=== PATIENT | female | born 1965 | race Hispanic/Latino ===

== ENCOUNTER 2024-07-16 17:53 | Inpatient (IN) | payer OTHER ==
[~2024-07-16] VITALS: Ht 157.5 cm; Wt 73.5 kg
[2024-07-16 18:53] VITALS: PULSE 96; RESP 18; TEMP 97.9
[2024-07-16] MEDS ORDERED: SODIUM CHLORIDE 0.9% 500ML 500 ML IV ONE (19:45)
[2024-07-16] MEDS ORDERED: SODIUM CHLORIDE FLUSH 10 ML SYR INJ PRN (20:00)
[2024-07-16 21:30] VITALS: BP 147/75; PULSE 71; RESP 18; TEMP 97.7; O2SAT 100
[2024-07-16] MEDS ORDERED: LEVOTHYROXINE88 MCG PO (22:03)
[2024-07-16] MEDS ORDERED: ISOSORBIDE MONO60 MG PO (22:03)
[2024-07-16] MEDS ORDERED: NIFEDIPINE ER60 M1 PO (22:03)
[2024-07-16] MEDS ORDERED: JANTOVEN4 MG PO (22:03)
[2024-07-16] MEDS ORDERED: ATORVASTATIN CA40 MG PO (22:03)
[2024-07-16] MEDS ORDERED: LOSARTAN POTAS100 MG PO (22:03)
[2024-07-16] MEDS ORDERED: HYDRALAZINE HC100 MG PO (22:03)
[2024-07-16] MEDS ORDERED: TRAZODONE HCL50 MG PO (22:03)
[2024-07-16] MEDS ORDERED: SEVELAMER CARB800 MG PO (22:03)
[2024-07-16] MEDS ORDERED: JANTOVEN3 MG PO (22:03)
[2024-07-16] MEDS ORDERED: TORSEMIDE20 MG PO (22:03)
[2024-07-16] MEDS ORDERED: CLONIDINE HCL0.3 MG PO (22:03)
[2024-07-16 22:09] VITALS: BP 147/75; PULSE 71; RESP 18; TEMP 97.7; O2SAT 100
[2024-07-16 22:20] VITALS: PULSE 69; RESP 16; O2SAT 99
[2024-07-16 22:28] VITALS: BP 147/75; PULSE 71; RESP 18; TEMP 97.7; O2SAT 100
[2024-07-17] VITALS (8 sets, daily range): BP systolic 149–179; BP diastolic 66–89; PULSE 56–77; RESP 18–20; TEMP 97.6–98.7; O2SAT 96–100
[2024-07-17] MEDS ORDERED: ACETAMINOPHEN 325 MG TAB PO PRN (02:15)
[2024-07-17] MEDS ORDERED: POLYETHYLENE GLYCOL 3350 17 GM PACK PO PRN (02:15)
[2024-07-17] MEDS ORDERED: ALBUTEROL SULF 0.083% NEB SOLN 3 ML NEB NEB PRN (02:15)
[2024-07-17] MEDS ORDERED: GUAIFENESIN/DEXTROMETHORPHAN LIQD 5 ML UDC PO PRN (02:15)
[2024-07-17] MEDS ORDERED: MELATONIN 3 MG TAB PO PRN (02:15)
[2024-07-17 08:23] LABS: INR 3.17
[2024-07-17 08:25] LABS: ANION GAP 16.1 mmol/L (8-16); CALCIUM 8.9 mg/dL (8.4-10.2); CREATININE, SERUM 4.71 mg/dL (0.57-1.11); POTASSIUM 4.1 mmol/L (3.5-5.1)
[2024-07-17] MEDS: ATORVASTATIN 40 MG TAB PO SCH (09:13)
[2024-07-17] MEDS: ISOSORBIDE MONONITRATE 30 MG TAB CR PO SCH (09:13)
[2024-07-17] MEDS: FOLIC ACID/CYANOCOB/PYRIDOXINE TAB PO SCH (09:13)
[2024-07-17] MEDS: LEVOTHYROXINE SODIUM 88 MCG TAB PO SCH (09:13)
[2024-07-17] MEDS: SEVELAMER CARBONATE 800 MG TAB PO SCH (09:14)
[2024-07-17] MEDS: HYDRALAZINE HCL 100 MG TABLET PO SCH (09:14)
[2024-07-17] MEDS: DOCUSATE SODIUM 100 MG CAP PO SCH (09:17)
[2024-07-17] MEDS ORDERED: DEXTROSE 50% SYRINGE 50 ML IV PRN (13:45)
[2024-07-17] MEDS: INSULIN REGULAR, HUMAN 100 UNIT/1 ML SQ SCH (16:30)
[2024-07-17] MEDS: SODIUM BICARBONATE 650 MG TAB PO SCH (16:52)
[2024-07-17] MEDS: SODIUM CHLORIDE 0.9% 1000ML 1,000 ML IV ONE (16:55)
[2024-07-17] MEDS ORDERED: WARFARIN SOD 5 MG TAB PO SCH (17:00)
[2024-07-17] MEDS ORDERED: SODIUM CHLORIDE 1 GM TAB PO SCH (17:15)
[2024-07-17] MEDS: SODIUM CHLORIDE 0.9% 500ML 500 ML IV ONE (19:57)
[2024-07-17] MEDS: TRAZODONE HCL 50 MG TAB PO SCH (20:01)
[2024-07-18] VITALS (7 sets, daily range): BP systolic 128–193; BP diastolic 76–98; PULSE 86–122; RESP 18–20; TEMP 98.5–99.1; O2SAT 99–100
[2024-07-18] MEDS: HYDRALAZINE HCL 20 MG/ML VIAL IV PRN (00:59)
[2024-07-18] MEDS: ONDANSETRON HCL INJ 2MG/ML 2ML 2 MG/ML VIAL IV PRN (02:34)
[2024-07-18] MEDS: PROMETHAZINE 12.5MG/ NACL 0.9% 12.5 MG/50 ML BAG IV ONE (05:16)
[2024-07-18 08:09] LABS: BASOPHILS % 0.3 % (0.0-1.0); HEMOGLOBIN 9.4 g/dL (12.0-16.0); LYMPHOCYTES # (AUTO) 0.5 (1.0-3.2); LYMPHOCYTES % 4.7 % (18.0-39.1); MEAN CORPUSCULAR HEMOGLOBIN 28.7 pg (28-32); MEAN CORPUSCULAR HGB CONC 31.3 g/dL (31-35); MEAN CORPUSCULAR VOLUME 91.5 fL (81-99); MONOCYTES # (AUTO) 0.1 (0.2-0.8); MONOCYTES % 1.4 % (4.4-11.3); NEUTROPHILS # (AUTO) 9.3 (2.1-6.9); NEUTROPHILS % 93.3 % (38.7-80.0); PLATELET COUNT 215 x10e3/uL (140-360); RED BLOOD COUNT 3.28 x10e6/uL (3.6-5.1); WHITE BLOOD COUNT 9.96 x10e3/uL (4.8-10.8)
[2024-07-18] MEDS: Morphine 2mg Syringe 2 MG/ML SYR IV PRN (08:23)
[2024-07-18 08:36] LABS: ALBUMIN 3.9 g/dL (3.5-5.0); ALBUMIN/GLOBULIN RATIO 1.1 (0.8-2.0); ANION GAP 19.3 mmol/L (8-16); BILIRUBIN,TOTAL 0.3 mg/dL (0.2-1.2); CALCIUM 9.4 mg/dL (8.4-10.2); CREATININE, SERUM 4.59 mg/dL (0.57-1.11); MAGNESIUM 1.8 MG/DL (1.3-2.1); PHOSPHORUS 4.7 MG/DL (2.3-4.7); POTASSIUM 4.3 mmol/L (3.5-5.1); TOTAL PROTEIN 7.4 g/dL (6.5-8.1)
[2024-07-18 08:43] LABS: TROPONIN I 0.055 ng/mL (0-0.300)
[2024-07-18 08:56] LABS: THYROID STIMULATING HORMONE 2.049 uIU/mL (0.350-4.940)
[2024-07-18] MEDS ORDERED: SODIUM CHLORIDE 1 GM TAB PO SCH (09:00)
[2024-07-18] MEDS: PROMETHAZINE 12.5MG/ NACL 0.9% 12.5 MG/50 ML BAG IV PRN (15:58)
[2024-07-18] MEDS ORDERED: HYDROCODONE/APAP 10MG-325MG TAB PO PRN (16:30)
[2024-07-18] MEDS: SODIUM BICARBONATE 650 MG TAB PO SCH (17:00)
[2024-07-18] MEDS: LEVOTHYROXINE SODIUM 88 MCG TAB PO ONE (17:27)
[2024-07-18] MEDS: SODIUM BICARBONATE 8.4% SYRING 75 ML in SODIUM CHLORIDE 0.45% 1,000 ML IV ONE (18:10)
[2024-07-18] MEDS: NIFEDIPINE CR 30 MG TAB PO ONE (18:19)
[2024-07-18] MEDS: INSULIN GLARGINE 100 UNITS/ML VIAL SQ SCH (20:29)
[2024-07-19] MEDS ORDERED: DONNATAL/LIDOCAINE/MAALOX 30 ML SUSP PO PRN ×3 (00:30→01:15)
[2024-07-19] MEDS: DICYCLOMINE HCL 20 MG/2 ML VIAL IM ONE (01:00)
[2024-07-19] MEDS: METOCLOPRAMIDE HCL 10 MG/2ML VIAL IV SCH ×2 (01:00→05:11)
[2024-07-19] MEDS: BELLADONNA ALK/PHENOBARBITAL 5 ML UDC PO ONE ×2 (01:40→01:41)
[2024-07-19] MEDS: MAGNESIUM/ALUMINUM/SIMETHICONE 30 ML UDC PO ONE (01:41)
[2024-07-19] MEDS: LIDOCAINE VISC 2% SOLN 15 ML UDC PO ONE (01:42)
[2024-07-19 04:00] VITALS: BP 148/95; PULSE 113; RESP 18; TEMP 98.5; O2SAT 99
[2024-07-19 06:52] LABS: FOLATE 18.4 ng/mL (7.0-15.4)
[2024-07-19] MEDS: LEVOTHYROXINE SODIUM 88 MCG TAB PO SCH (06:55)
[2024-07-19 07:29] LABS: ANION GAP 21.5 mmol/L (8-16); CREATININE, SERUM 5.46 mg/dL (0.57-1.11); MAGNESIUM 1.9 MG/DL (1.3-2.1); POTASSIUM 4.5 mmol/L (3.5-5.1)
[2024-07-19] MEDS: DICYCLOMINE HCL 10 MG CAP PO SCH (08:52)
[2024-07-19] MEDS: NIFEDIPINE CR 30 MG TAB PO SCH (08:52)
[2024-07-19 09:10] VITALS: BP 157/95; PULSE 113; RESP 18; TEMP 98.5; O2SAT 99
[2024-07-19 09:35] VITALS: BP 157/95; PULSE 113; RESP 17; TEMP 98.8; O2SAT 100
[2024-07-19] MEDS ORDERED: ONDANSETRON HCL4 MG PO (11:09)
[2024-07-19] MEDS ORDERED: DICYCLOMINE HCL10 MG PO (11:09)
[2024-07-19] MEDS ORDERED: SODIUM BICARBO650 MG PO (11:09)
[2024-07-19] MEDS ORDERED: AUGMENTIN 500-1 EACH PO (11:09)
[2024-07-19] MEDS ORDERED: METOPROLOL TARTRATE 25 MG TAB PO SCH (17:00)
[2024-07-29 06:26] LABS: ATYPICAL pANCA TITER <1:20 titer (Neg:<1:20); SACCHAROMYCES CEREVISIAE IGA 51.9 Units (0.0-24.9)
== END 2024-07-19 12:59 | disposition home or self-care (01) | DRG 683 ==
LOC: EDBD 17:53 → FSED 18:04 → ERHOLD 19:51 → MED/SURG2 21:38 → OBSVTOIN 07-18 14:35 → MED/SURG 07-18 23:28
PROVIDERS: ADMIT Internal Medicine Critical Care Medicine; ATTEND Internal Medicine Critical Care Medicine
DX: N17.9 Acute kidney failure, unspecified (principal); A04.9 Bacterial intestinal infection, unspecified; E87.20 Acidosis, unspecified; I12.9 Hypertensive chronic kidney disease with stage 1 through stage 4 chronic kidney disease, or unspecified chronic kidney disease; E11.22 Type 2 diabetes mellitus with diabetic chronic kidney disease; N18.4 Chronic kidney disease, stage 4 (severe); Z86.73 Personal history of transient ischemic attack (TIA), and cerebral infarction without residual deficits; J44.9 Chronic obstructive pulmonary disease, unspecified; Z95.2 Presence of prosthetic heart valve; R06.00 Dyspnea, unspecified
CPT/HCPCS: 36415; 71046; 74176; 76770; 80048; 80053; 81003; 82550; 82607; 82746; 82948; 83690; 83735; 83880; 84100; 84443; 84466; 84484; 85025; 85045; 85610; 86256; 86671; 93005; 94799; 96360; 99284; G0378; J0360; J2270; J2405; J2470; J2543; J2550; J2765; J7030; J7040